=== PATIENT | female | born 1975 | race Caucasian/White ===

== ENCOUNTER 2017-02-26 21:47 | Emergency (ER) | payer SELFPAY ==
--- NOTE | 2017-02-26 22:07 | NUR ---
INFORMED BY ADMITTING "PT LEFT"
== END 2017-02-26 22:08 | disposition left against medical advice (07) ==
LOC: ER 21:48
DX: Z53.21 Procedure and treatment not carried out due to patient leaving prior to being seen by health care provider (principal)